=== PATIENT | female | born 1980 | race Caucasian/White ===

== ENCOUNTER 2017-06-11 19:16 | Emergency (ER) | payer OTHER ==
[~2017-06-11 19:16] MED LIST: ALBUTEROL17 GM INH; CEFUROXIME250 M1 PO; CITALOPRAM HBR40 M1 PO; HYDROXYZINE HCL25 M1 PO; IMITREX50 MG PO; KEPPRA500 M2 PO; LAMICTAL PO; LAMICTAL25 MG PO; MELATONIN1 MG PO; MULTI VITAMIN1 EACH PO; NAPROSYN500 MG PO; NAPROXEN SODIU550 MG PO; NO MEDICATIONS; PROMETHAZINE HC25 MG PO; STIOLTO RESPIMAT4 GM; TEGRETOL PO; THORAZINE25 MG PO; VIMPAT200 MG PO; VIMPAT50 MG PO
== END 2017-06-11 21:41 | disposition home or self-care (01) ==
LOC: CED 19:16
DX: G40.909 Epilepsy, unspecified, not intractable, without status epilepticus (principal); F17.210 Nicotine dependence, cigarettes, uncomplicated
CPT/HCPCS: 99284

== ENCOUNTER → 2017-08-16 | Outpatient (CLI) | payer OTHER ==
--- NOTE | ~2017-08-16 | CT7 ---
[facility] A Service of [facility] RADIOLOGY TEXT RESULTS PATIENT: KAYODE WOODWARD LOCATION: [facility] : 78 UNIT #: [id number] AGE: [address]: Codey Gurrola MD SEX: F ORDER DR: [id number] [facility] [address] [place], [place] [address] [id number] O MR#: [id number] Acc #: [id number] NAME: KAYODE WOODWARD : 1980 SEX: F STUDY DATE/TIME: 08/16/2017 14:39 UNIT: [facility] ROOM: STUDY DESCRIPTION: CT Abdomen Wo Cont Attending Physician: Codey Gurrola M.D. Referring Physician: Codey Gurrola M.D. Ordering Physician: Codey Gurrola M.D. Primary Care Physician: Codey Gurrola M.D. MEDICAL IMAGING REPORT This report is preliminary unless electronic signature is present EXAM CT abdomen without contrast. INDICATIONS Left-sided mid back and flank pain for the past [address] of the abdomen. This CT exam was performed with one or more of the following radiation dose reduction techniques: automatic exposure control, adjustment of mA and/or kV according to patient size, and iterative reconstruction. COMPARISON None. FINDINGS Abdomen without contrast: Included lung bases are clear. The liver, spleen, kidneys, adrenal glands, pancreas, gallbladder have an unremarkable unenhanced appearance. The included bowel loops are nondilated. No aggressive appearing bone lesion. IMPRESSION Negative unenhanced CT of the abdomen. Dictated by... Sarwat Correia M.D. THIS IS AN ELECTRONICALLY VERIFIED REPORT Sarwat Correia M.D. at 08/18/2017 8:04 AM EED/cameron TD: 08/17/2017 08:31 [facility] A Service of [facility] RADIOLOGY TEXT RESULTS PATIENT: KAYODE WOODWARD LOCATION: [facility] : 78 UNIT #: [id number] AGE: [address]: Codey Gurrola MD SEX: F ORDER DR: JOB #: [id number] MEDICAL IMAGING REPORT Page 1 of 1 COPY
== END | disposition home or self-care (01) ==
LOC: CCAT 13:31
DX: M54.9 Dorsalgia, unspecified (principal)
CPT/HCPCS: 74150